=== PATIENT | male | born 1950 | race Two or more races ===

== ENCOUNTER 2018-03-15 14:00 | Emergency (ER) | payer MEDICARE, MEDICAID ==
[~2018-03-15] VITALS: Ht 167.6 cm; Wt 74.8 kg
--- NOTE | 2018-03-15 14:04 | NUR ---
ED Nurse Note: A/Ox4. Pt ambulated in to ER with pt's due to left earache x ringing x1 week. Denies any discharge nor itching. BP of 200/87 in triage, pt stated that he took BP med but does not remember the name of the medication.
[2018-03-15 14:06] VITALS: BP 188/87
[2018-03-15] MEDS ORDERED: METFORMIN HCL500 M1 ORAL (14:12)
[2018-03-15] MEDS ORDERED: LISINOPRIL20 MG ORAL (14:12)
--- NOTE | 2018-03-15 14:23 | Emergency Room Report ---
History of Present Illness General Chief Complaint: Earache Source: Patient Present Illness HPI Patient is a 67-year-old male who presented after increased left-sided earache. Patient was noted to have symptoms for approximate 1 week. He reports having recent increase in cough and congestion. He denies any current respiratory symptoms or chest discomfort at this time. Patient reported having normal hearing. He had been using some [id number] drops for pain. He denies any fever. He denies any ear discharge. He denies any vertigo sensation. Allergies: Coded Allergies: No Known Allergies (Unverified , 03/15/18) Patient History Reviewed Nursing Documentation: PMH: Agreed; PSxH: Agreed Nursing Documentation-PM Past Medical History: No History, Except For Hx Hypertension: Yes Hx Diabetes: Yes Review of Systems All Other Systems: negative except mentioned in HPI Physical Exam Vital Signs Date Time Temp Pulse Resp B/P (MAP) Pulse Ox O2 Delivery O2 Flow Rate FiO2 03/15/18 14:04 98.4 86 17 200/95 99 General Appearance: well appearing, no apparent distress, alert, GCS 15, non- toxic Head: normocephalic, atraumatic ENT: hearing grossly normal, normal voice Neck: full range of motion, supple Respiratory: chest non-tender, lungs clear, normal breath sounds, no respiratory distress, speaking full sentences Cardiovascular #1: normal inspection, normal peripheral pulses, regular rate, rhythm Gastrointestinal: normal inspection, normal bowel sounds, non tender, soft Musculoskeletal: normal inspection, no calf tenderness Neurologic: normal inspection, alert, oriented x3, responsive, normal gait Psychiatric: mood/affect normal Skin: no rash Medical Decision Making Diagnostic Impression: Primary Impression: Otitis externa ER Course Patient presented for ear pain. Differential diagnosis included was not limited to otitis media, malignant otitis externa, foreign body, cellulitis, mastoiditis, carotid dissection, myocardial infarction among others. Patient has a benign exam and does not appear to require any further imaging or laboratory testing at this time. Patient appears to have an otitis externa. Patient does not appear to have any evidence of systemic toxicity. Patient's mastoid is nontender. There is no external ear severe swelling. Patient will be started on Ciprodex. Patient was advised to follow-up with primary care physician for recheck.Patient will be discharged home. He appears to be stable at this time. Last Vital Signs Date Time Temp Pulse Resp B/P (MAP) Pulse Ox O2 Delivery O2 Flow Rate FiO2 03/15/18 14:04 98.4 86 17 200/95 99 Status: improved Disposition: HOME, SELF-CARE Condition: Stable Scripts Ciprofloxacin Hcl/Dexameth (CIPRODEX OTIC SUSPENSION) 7.5 Ml Drops.susp 4 DROP LEFT EAR TWICE A DAY, #7.5 ML Prov: Shawn Gómez MD 03/15/18 Shawn Gómez MD Mar 15, 2018 14:23
[2018-03-15] MEDS ORDERED: CIPRODEX OTIC7.5 M1 LEFT EAR ×2 (14:25→14:30)
[2018-03-15 14:29] VITALS: BP 188/87
--- NOTE | 2018-03-15 14:30 | NUR ---
ED Nurse Note: Per Dr. Gómez, is it ok to discharge pt with 188/87. Pt cleared DC by Dr. Sams. Pt is A/Ox4, VSS, DC instruction and prescriptions given, pt verbalized understanding. ID wristband removed. All belongings given to pt. Pt ambulated out of ER with steady gait.
== END 2018-03-15 14:30 | disposition home or self-care (01) ==
LOC: EMR 14:26
DX: H60.92 Unspecified otitis externa, left ear (principal); I10 Essential (primary) hypertension; E11.9 Type 2 diabetes mellitus without complications
CPT/HCPCS: 99282